=== PATIENT | male | born 1985 | race African-American/Black ===

== ENCOUNTER 2020-05-02 17:42 | Emergency (ER) | payer OTHER, SELFPAY ==
[2020-05-02] VITALS (10 sets, daily range): BP systolic 111–153; BP diastolic 50–84; PULSE 81–116; RESP 18–38; TEMP 36.1–36.6; O2SAT 93–100
--- NOTE | ~2020-05-02 | XR_ITS ---
EXAMINATION: XR chest 1V portable INDICATION: Transient alteration of awareness TECHNIQUE: Portable AP chest at 1901 hours COMPARISON: None available FINDINGS: The lungs are free of acute opacities. There is no pleural effusion or pneumothorax. The ca rdiomediastinal silhouette is normal. IMPRESSION: 1. No acute cardiopulmonary abnormality. Reviewed, dictated and finalized at location A. SCALA DEVELOPER
--- NOTE | ~2020-05-02 | CT_ITS ---
EXAMINATION: CT brain wo con INDICATION: Transient alteration of awareness COMPARISON: None TECHNIQUE: Standard unenhanced head CT. The dose-length product (DLP) was 756.67 mGy-cm. The mA was a djusted according to patient size. Iterative reconstruction technique was employed. FINDINGS: There is an approximately 4.4 x 2.9 x 6.0 cm area of low attenuation in the right frontal l obe with areas of punctate calcification. There are 7 mm of [id number] midline shift anteriorly. N o intracranial hemorrhage or acute infarction. The ventricles are normal. The basal cisterns are urban nt. The orbits are normal. The paranasal sinuses, mastoids and calvarium are normal. IMPRESSION: 1. Hypoattenuation in the right frontal lobe with areas of calcification and right left midline shift . Findings are concerning for neoplasm. Recommend further evaluation by MRI without and with contrast . These findings and recommendations [facility]. Reviewed, dictated and finalized at location A. ORATE RESPONSIBILITY OFFICER IMPRESSION: 1. Hypoattenuation in the right frontal lobe with areas of calcification and ri ght left midline shift. Findings are concerning for neoplasm. Recommend further evaluation by MRI without and with contrast. These findings and recommendation s were discussed with IDANIA Hicks in the Emergency Department at 1905 jovani rs on 05/02/2020.
--- NOTE | 2020-05-02 17:51 | ECG_ITS ---
Measurements Intervals [place] Rate: 94 P: 70 OK: 162 QRS: -52 QRSD: 92 T: 59 QT: 332 QTc: 417 Interpretive Statements SINUS RHYTHM LEFT ANTERIOR FASCICULAR BLOCK PEAKED T WAVES- CONSIDER HYPERKALEMIA OR ISCHEMIA BASELINE WANDER- I, II ABNORMAL ECG Electronically Signed On 05-02-2020 19:20:42 SENIOR SPECIALIST by Joe Nash D.O.
--- NOTE | 2020-05-02 17:59 | ED.GENADULT ---
HPI - General Adult General Chief complaint: Seizure <Maikel Oates PA-C - Last Filed: 05/02/20 20:44> Stated complaint: seizures <Maikel Oates PA-C - Last Filed: 05/02/20 20:44> Time Seen by Provider: 05/02/20 17:46 <Maikel Oates PA-C - Last Filed: 05/02/20 20:44> Source: patient, family and EMS <SANTA Guillaume Last Filed: 05/02/20 20:44> Mode of arrival: EMS <Maikel Oates PA-C - Last Filed: 05/02/20 20:44> Limitations: altered mental status <Maikel Oates PA-C - Last Filed: 05/02/20 20:44> History of Present Illness HPI narrative: Patient is a 35-year-old male who presents from work per EMS for evaluation of seizure activity. Patient does not have a seizure history patient was at work when he was having snoring respirations while sitting in a chair went to his side at which point EMS was contacted on arrival to EMS patient has continued to be postictal alert and oriented to self patient is easily arousable family specifically mother notes that he has been on a new diet and taking supplements but otherwise does not have any pertinent past medical history and had been fine prior to the onset of the seizure <Maikel Oates PA-C - Last Filed: 05/02/20 20:44> Related Data Home medications: Home Medications Medication Instructions Recorded Confirmed Multiple Unknown Supplements 05/02/20 <Maikel Oates PA-C - Last Filed: 05/02/20 20:44> Allergies/adverse reactions: Allergies Allergy/AdvReac Type Severity Reaction Status Date / Time No Known Allergies Allergy Verified 05/02/20 18:06 <Maikel Oates PA-C - Last Filed: 05/02/20 20:44> Review of Systems Review of Systems: ROS unobtainable: Yes unobtainable due to medical condition <Maikel Oates PA-C - Last Filed: 05/02/20 20:44> [facility] Social History Social History: Social History Smoking status: Never smoker Gender identity (if verbalized by the patient): Male <Maiekl Oates PA-C - Last Filed: 05/02/20 20:44> Exam Narrative: Exam Narrative: GENERAL: Ill-appearing, well-nourished, postictal HEAD: Normocephalic, small contusion to the right brow EYES: PERRLA and EOMI. ENT: Nares clear, no rhinorrhea or epistaxis. Mucous membranes moist. Patient with bite wound to the tongue NECK: Supple. No adenopathy or masses. CHEST: Clear to auscultation. No respiratory distress. No wheezes rales or rhonchi HEART: Tachycardic rate and regular rhythm. No murmur heard. Normal peripheral pulses. ABDOMEN: Soft, nontender, nondistended, normal active bowel sounds. EXTREMITIES: No edema wounds noted SKIN: Warm, dry, no rash. NEURO: Alert and oriented to self on arrival. PSYCH: Postictal <Maikel Oates PA-C - Last Filed: 05/02/20 20:44> Course Course Emergency Course: Patient presented with seizure activity found to have abnormal CT of the brain patient seized again in the emergency department was given Ativan and Keppra patient case was discussed with [facility] who did not have the beds to facilitate excepting the patient, [facility] was then contacted spoke with neurosurgeon Dr. Yusuf. Patient case discussed in entirety with Dr. Yusuf who agrees with the current interventions would like the patient to be continued to be monitored while waiting for a bed for the patient was stated not actively have at this time but are attempting to make arrangements for. Patient with improving condition since second seizure. Patient given fluids Keppra Ativan antibiotics and steroids in the emergency department. Patient's initial CT findings concerning for neoplasm. <Maikel Oates PA-C - Last Filed: 05/02/20 20:44> [employer]OOFING PLANT SUPERVISOR/PA Physician Supervision For this patient encounter, I reviewed the ROOFING PLANT SUPERVISOR or PA documentation, treatment plan, and medical decision making; and I had [id number] time with this patient
[2020-05-02] MEDS: LORazepam INJ (*CRX) 2 MG/ML VIAL 1 MG IV PUSH (18:14)
[2020-05-02] MEDS: SODIUM CHLORIDE 0.9% IV 1,000 ML 999 ML IV CONT (18:19)
[2020-05-02] MEDS: levETIRAcetam 1000MG/NACL100ML 1,000 MG/100 ML BAG 400 MG IVPB (18:23)
[2020-05-02 18:27] LABS: Basophils Absolute Auto 0.1 K/mm3 (0.0-0.1); Basophils Percent Auto 0.7 % (0.2-1.2); Eosinophils Absolute Auto 0.2 K/mm3 (0-0.3); Eosinophils Percent Auto 1.6 % (0-4.4); Hematocrit 50.8 % (42.0-52.0); Hemoglobin 15.4 g/dL (14.0-18.0); Immature Granulocyte Absolute 0.23 K/mm3 (0.00-0.031); Lymphocytes Percent Auto 46.8 % (18.3-44.2); Mean Corpuscular HGB Conc 30.3 g/dl (32-36); Mean Corpuscular Hemoglobin 24.9 pg (26-34); Mean Corpuscular Volume 82.2 fl (80-100); Mean Platelet Volume 9.2 fl (7.4-10.4); Monocytes Absolute Auto 0.9 K/mm3 (0.1-0.6); Neutrophils Absolute Auto 4.6 K/mm3 (1.3-6.7); Neutrophils Percent Auto 40.9 % (45.5-73.1); Platelet Count Result 449 k/mm3 (150-375); Red Blood Count 6.18 M/mm3 (4.6-6.20); Red Cell Distribution Width 13.8 % (11.5-14.5); White Blood Count 11.3 K/mm3 (4.5-10.0)
[2020-05-02 18:37] LABS: Partial Thromboplastin Time 23.4 SECONDS (22.3-36.8); Prothrombin Time 13.4 Seconds (11.1-14.7)
[2020-05-02 18:45] LABS: Magnesium 2.7 mg/dL (1.6-2.3)
[2020-05-02 18:50] LABS: Albumin Level 5.3 g/dL (3.5-5.1); Alkaline Phosphatase 73 U/L (38-126); Aspartate Amino Transferase 45 U/L (17-59); Bilirubin,Total 0.3 mg/dL (0.2-1.3); Blood Urea Nitrogen 23 mg/dL (9-20); CRP < 0.5 mg/dL (<1.0); Calcium 10.5 mg/dL (8.4-10.2); Carbon Dioxide < 5 mmol/L (22-30); Chloride 100 mmol/L (98-107); Estimated CRCL calculation 68 ml/min; Estimated Glomerular Filt Rate 60; Glucose 135 mg/dL (75-110); Lipase 367 U/L (23-300); Potassium 4.5 mmol/L (3.4-5.0); Sodium 136 mmol/L (137-145)
[2020-05-02 18:53] LABS: Alanine Aminotransferase 32 U/L (4-50)
[2020-05-02 19:09] LABS: Lactic Acid Reflex 20.2 mmol/L (0.7-2.1)
--- NOTE | 2020-05-02 19:09 | PC.NURSE ---
Pt in CT, staff called and stated that pt was vomiting.
--- NOTE | 2020-05-02 19:12 | PC.NURSE ---
Pt incontinent of urine
--- NOTE | 2020-05-02 19:29 | PC.NURSE ---
Pt O2 dropping. Pt placed on a NRB per Dr. Martin
[2020-05-02] MEDS: ONDANSETRON INJ 4 MG/2 ML VIAL IV PUSH (19:41)
[2020-05-02] MEDS: FAMOTIDINE 20 MG/2 ML VIAL IV PUSH (19:41)
[2020-05-02] MEDS: LACTATED RINGERS 1,000 ML 999 ML IV CONT (19:41)
[2020-05-02] MEDS: DEXAMETHASONE SOD PHOS INJ 4 MG/ML VIAL 10 MG IV PUSH (19:42)
[2020-05-02 21:17] LABS: Add Urine Microscopic? YES; Appearance Urine Cloudy (Clear); Bacteria Urine Trace /hpf; Bilirubin Urine Negative (Negative); Blood Urine 2+ (Negative); Color Urine Yellow (Yellow); Glucose Urine UA Negative (Negative); Ketones Urine Negative (Negative); Leukocyte Esterase Ur Negative LEU/UL (Negative); Mucus Urine Rare /lpf; Nitrate Urine Negative (Negative); Protein Urine 2+ mg/dL (Negative); RBC Urine 0-2 /hpf (0-2); Specific Grav Ur 1.013 (1.001-1.035); Urobilinogen Urine Negative mg/dL (<2.0); WBC Urine 0-3 /hpf
[2020-05-02 21:25] LABS: Reflex Lactic Acid Yes or No Add Lactic
[2020-05-02 21:30] LABS: Amphetamine Screen Urine Negative (Negative); Barbiturate Screen Urine Negative (Negative); Benzodiazepines Screen Urine Negative (Negative); Cannabinoid Screen Urine Negative (Negative); Cocaine Screen Urine Negative (Negative); Methadone Screen Urine Negative (Negative); Opiate Screen Urine Negative (Negative); Phencyclidine Screen Urine Negative (Negative)
[2020-05-02 21:40] LABS: Creatine Kinase 491 U/L (55-170)
--- NOTE | 2020-05-02 23:39 | PC.NURSE ---
pt sitting on end of bed, stated he needed to use bathroom, pt alert, stated name, place as hospital. not aware of date, or month. aware
[2020-05-03] VITALS (14 sets, daily range): BP systolic 118–164; BP diastolic 64–86; PULSE 72–84; RESP 16–20; TEMP 36.3–36.6; O2SAT 97–100
--- NOTE | 2020-05-03 04:18 | PC.NURSE ---
pt alert, up walking around room, answers questions appropriatly, md aware. called mother to tell her he was doing better, no diff ambulating,
[2020-05-03] MEDS: levETIRAcetam 1000MG/NACL100ML 1,000 MG/100 ML BAG 400 MG IVPB ×2 (05:15→19:24)
[2020-05-03] MEDS: ONDANSETRON INJ 4 MG/2 ML VIAL (08:18)
[2020-05-03] MEDS: ONDANSETRON INJ 4 MG/2 ML VIAL IV PUSH (19:24)
--- NOTE | 2020-05-03 19:47 | PC.NURSE ---
Called [facility] for status...ETA [id number]. Original ETA was
--- NOTE | 2020-05-03 21:48 | PC.NURSE ---
Talked with [facility]...ETA [id number]
--- NOTE | 2020-05-03 22:21 | PC.NURSE ---
Called [facility], ETA [id number]
--- NOTE | 2020-05-03 22:34 | PC.NURSE ---
Called [facility]....nothing available for transport.
--- NOTE | 2020-05-03 22:36 | PC.NURSE ---
Called [facility]...nothing available. Backed up on transfers.
--- NOTE | 2020-05-03 22:36 | PC.NURSE ---
Received a call from CYNTHIA at [facility]. She stated that family has been calling them direct and hassling them. The brother has cussed her out. I apologized to her, she said that she did explain to them that they are doing what they can do to get their family member transported to [facility], but 911 calls take precedence over transports.
--- NOTE | 2020-05-03 23:13 | PC.NURSE ---
Anne with [facility] called with updated ETA...01:15
--- NOTE | 2020-05-04 01:23 | PC.NURSE ---
Called [facility] for status...ETA [id number]
--- NOTE | 2020-05-04 02:12 | PC.NURSE ---
Jeannine with [facility] called with update...ETA [id number]
[2020-05-04 03:12] VITALS: BP 128/73; PULSE 78; RESP 16; TEMP 36.6; O2SAT 100
== END 2020-05-04 03:14 | disposition short-term general hospital (02) ==
PROVIDERS: Emergency Medicine Emergency Medical Services; Emergency Provider Emergency Medicine; PCP Pediatrics
DX: R56.9 Unspecified convulsions (principal); G93.9 Disorder of brain, unspecified
CPT/HCPCS: 36415; 51701; 70450; 71045; 80053; 80307; 81001; 82550; 83605; 83690; 83735; 85025; 85610; 85730; 86140; 87040; 93005; 96361; 96365; 96366; 96367; 96375; 96376; 99285; J1100; J1953; J2060; J2405; J2543; J7030; J7120